=== PATIENT | female | born 1975 | race Caucasian/White ===

== ENCOUNTER 2018-07-26 12:11 | Emergency (ER) | payer MEDICAID ==
[2018-07-26 12:34] LABS: URINE SOURCE CLEAN C
[2018-07-26 12:54] LABS: URINE BILIRUBIN NEGATIVE (NEGATIVE); URINE BLOOD NEGATIVE (NEGATIVE); URINE GLUCOSE (UA) NEGATIVE (NEGATIVE); URINE KETONE NEGATIVE (NEGATIVE); URINE LEUKOCYTE ESTERASE NEGATIVE (NEGATIVE); URINE NITRATE NEGATIVE (NEGATIVE); URINE PH 7.5 (4.6 - 8.0); URINE PROTEIN NEGATIVE (NEGATIVE); URINE UROBILINOGEN 0.2 E.U./dL (0.2 - 1.0)
[2018-07-26 13:11] LABS: URINE CLARITY CLEAR (CLEAR); URINE COLOR STRAW; URINE MICROSCOPIC INDICATED? NO
[2018-07-26] MEDS ORDERED: Morphine Sulfate 2 mg/mL 1mL Syr IV STA (13:23)
[2018-07-26] MEDS ORDERED: Lactated Ringer 1,000 ML IV ONE (13:27)
[2018-07-26 13:31] LABS: AMPHETAMINE URINE NEGATIVE (NEGATIVE); BARBITURATES URINE NEGATIVE (NEGATIVE); BENZODIAZEPINES QUAL URINE NEGATIVE (NEGATIVE); CANNABINOID THC NEGATIVE (NEGATIVE); COCAINE METABOLITE QUAL URINE NEGATIVE (NEGATIVE); METHADONE URINE NEGATIVE (NEGATIVE); METHAMPHETAMINES QUAL URINE NEGATIVE (NEGATIVE); OPIATES (MORPHINE) QUAL. URINE NEGATIVE (NEGATIVE); PHENCYCLIDINE (PCP) URINE NEGATIVE (NEGATIVE); TRICYCLICS (TCA) QUAL. URINE NEGATIVE (NEGATIVE)
[2018-07-26 13:41] LABS: % BASOPHILS 0.7 % (0.0-2.0); % EOSINOPHILS 1.3 % (0.0-5.0); % LYMPHOCYTES 34.5 % (20.0-50.0); % MONOCYTES 5.5 % (2.0-10.0); EOSINOPHILE ABSOLUTE 0.1 Th/cmm (0.1-0.4); HEMATOCRIT 37.5 % (41.0-60); HEMOGLOBIN 11.8 gm/dL (12-16); LYMPHOCYTE ABSOLUTE 2.1 Th/cmm (1.5-3.0); MEAN CELL VOLUME 77.8 fl (81-100); MEAN CORPUSCULAR HEMOGLOBIN 24.6 pg (27.0-31.0); MEAN CORPUSCULAR HGB CONC 31.6 pg (28.0-36.0); MEAN PLATELET VOLUME 8.6 fl; MONOCYTE ABSOLUTE 0.3 Th/cmm (0.3-1.0); NEUTROPHILE ABSOLUTE 3.7 Th/cmm (1.8-8.0); PLATELET COUNT 283 Th/cmm (150-400); RED BLOOD COUNT 4.81 Mil/cmm (3.80-5.10); WHITE BLOOD COUNT 6.2 Th/cmm (4.8-10.8)
[2018-07-26] MEDS ORDERED: Morphine Sulfate 2 mg/mL 1mL Syr ONE (13:44)
[2018-07-26 13:54] LABS: INR 0.88 (0.5-1.4); PROTHROMBIN TIME (TEST) 9.3 SECONDS (9.5-11.5)
--- NOTE | 2018-07-26 18:48 | ED Physician Chart ---
ED Chief Complaint/HPI - Patient Information Date Seen:: 07/26/18 Time Seen:: 12:39 Chief Complaint:: pelvic & low back pain History of Present Illness:: pelvic & low back pain in a patient with a known h/o fibroids (diagnosed in 2017) on ultrasound No N, V, D, C, FEVERS. Allergies:: Allergies Allergy/AdvReac Type Severity Reaction Status Date / Time No Known Allergies Allergy Verified 07/26/18 12:35 Vitals:: Vital Signs - 8 hr 07/26/18 07/26/18 07/26/18 12:39 13:24 13:27 Temp 98.4 F HR 90 82 93 RR 17 BP 146/98 145/94 134/93 O2 Sat % 100 Historian:: Patient, Family Member Review:: Nurse's Note Reviewed ED Review of Systems - Review of Systems General/Constitutional: No fever, No chills, No weight loss, No weakness, No diaphoresis, No edema, No loss of appetite Skin: No skin lesions, No rash, No bruising Head: No headache, No light-headedness Eyes: No loss of vision, No pain, No diplopia ENT: No earache, No nasal drainage, No sore throat, No tinnitus Neck: No neck pain, No swelling, No thyromegaly, No stiffness, No mass noted Cardio Vascular: No chest pain, No palpitations, No PND, No orthopnea, No edema Pulmonary: No SOB, No cough, No sputum, No wheezing GI: No nausea, No vomiting, No diarrhea, No pain, No melena, No hematochezia, No constipation, No hematemesis G/U: No dysuria, No frequency, No hematuria Access Developer: Abnormal vaginal bleeding, Other (pelvic pain) Musculoskeletal: No bone or joint pain, Back pain, No muscle pain Endocrine: No polyuria, No polydipsia Psychiatric: No prior psych history, No depression, No anxiety, No suicidal ideation Hematopoietic: No bruising, No lymphadenopathy Allergic/Immuno: No urticaria, No angioedema Neurological: No syncope, No focal symptoms, No weakness, No paresthesia, No headache, No seizure, No dizziness, No confusion, No vertigo ED Past Medical History - Past Medical History Obtainable: Yes Past Medical History: Other (fibroids) Surgical History: other (tubal ligation) Family Medical History - Family Member Mother History Unknown: Yes ED Physical Exam - Physical Examination General/Constitutional: Awake, Well-developed, well-nourished, GCS 15, Non- toxic appearing, Ambulatory Other Gen/Cons comments:: in pain Head: Atraumatic Eyes: Lids, conjuctiva normal, PERRL, EOMI Skin: Nl inspection, No rash, No skin lesions, No ecchymosis, Well hydrated, No lymphadenopathy ENMT: External ears, nose nl Neck: Nontender, No nuchal rigidity, No stridor Respiratory: Nl effort/Exclusion, Clear to Auscultation, No Wheeze/Rhonchi/Rales Cardio Vascular: RRR, No murmur, gallop, rubs, NL S1 S2 GI: No organomegaly, No hernia, Normal BS's, Nondistended, No McBurney tenderness Other GI comments:: left more than right lower quadrant pain. : No CVA tenderness Extremities: No tenderness or effusion, Full ROM, normal strength in all extremities, No edema, Normal digits & nails Neuro/Psych: Alert/oriented, Normal sensory exam, Normal motor strength, Judgement/insight normal, Normal gait, No focal deficits Other Neuro/Psych comments:: in pain. Misc: Normal back, No paraspinal tenderness ED Labs/Radiology/EKG Results - Lab Results Results: Laboratory Tests 07/26/18 07/26/18 07/26/18 12:20 12:20 12:20 WBC RBC Hgb Hct MCV MCH MCHC Differential RDW Plt Count MPV Neutrophils % Lymphocytes % Monocytes % Eosinophils % Basophils % PT INR PTT (Actin FS) Serum , Qual Urine Source CLEAN C Urine Color STRAW Urine Clarity CLEAR Urine pH 7.5 Ur Specific [place] 1.010 Urine Protein NEGATIVE Urine Glucose (UA) NEGATIVE Urine Ketones NEGATIVE Urine Blood NEGATIVE Urine Nitrate NEGATIVE Urine Bilirubin NEGATIVE Urine Urobilinogen 0.2 Ur Leukocyte Esterase NEGATIVE Urine Test NEGATIVE Urine Opiates Screen NEGATIVE Urine Methadone Screen NEGATIVE Ur Barbiturates Screen NEGATIVE Ur Tricyclics Screen NEGATIVE Ur Phencyclidine Scrn NEGATIVE Amphetamines Screen NEGATIVE U Methamphetamines Scrn NEGATIVE U Benzodiazepines Scrn NEGATIVE U Cocaine Metab Screen NEGATIVE U Cannabinoids Screen NEGATIVE 07/26/18 07/26/18 07/26/18 13:36 13:36 13:36 WBC 6.2 RBC 4.81 Hgb 11.8 L Hct 37.5 L MCV 77.8 L MCH 24.6 L MCHC Differential 31.6 RDW 13.0 Plt Count 283 MPV 8.6 Neutrophils % 58.0 Lymphocytes % 34.5 Monocytes % 5.5 Eosinophils % 1.3 Basophils % 0.7 PT 9.3 L INR 0.88 PTT (Actin FS) 24.1 L Serum , Qual NEGATIVE Urine Source Urine Color Urine Clarity Urine pH Ur Specific [place] Urine Protein Urine Glucose (UA) Urine Ketones Urine Blood Urine Nitrate Urine Bilirubin Urine Urobilinogen Ur Leukocyte Esterase Urine Test Urine Opiates Screen Urine Methadone Screen Ur Barbiturates Screen Ur Tricyclics Screen Ur Phencyclidine Scrn Amphetamines Screen U Methamphetamines Scrn U Benzodiazepines Scrn U Cocaine Metab Screen U Cannabinoids Screen ED Assessment - Assessment General Assessment: ultrasound from today: nabothian cysts seen largest 0.6 cm left ovarian cyst, 1.2 cm right ovarian cysts, multiple, largest 1.3 cm echogenic structure at cervical canal area measuring 0.5 cm. Fluid seen in canal. Multiple heterogeneous structures seen, largest 8 cm consistent with fibroid fobration. previous ultrasound from 03/31/2018 at [facility]: uterus with 12 xz 6 x 6m enlarged containing multiple fibroids largest 6 x 5 cm. The endometrial strip isn't abnormally thickened measuring 2.1 cm. No endometrial masses or polyps. right ovary: 2.6 x 1.5 x 2.2 cm unremarkable with normal blood flow. left ovary: 3.3 x 1.8 x 2.5 unremarkable. Normal blood flow demonstrated. No adnexal masses or free fluid in the cul-de-sac. ED Septic Shock - . Is Septic Shock (SBP<90, OR Lactate>4 mmol\L) present?: No - <6hrs of presentation: Vital Signs: Vital Signs - 8 hr 07/26/18 07/26/18 07/26/18 12:39 13:24 13:27 Temp 98.4 F HR 90 82 93 RR 17 BP 146/98 145/94 134/93 O2 Sat % 100 ED Reassessment (Disposition) - Reassessment Reassessment Condition:: Improved - Diagnosis Diagnosis:: Multiple fibroids of uterus Ovarian cysts. - Aftercare/Follow up Instructions Aftercare/Follow-Up Instructions:: Refer to Discharge Instructions Notes:: follow up with primary care physician Keep your appointment with the voice instructor this week. Medication Prescribed:: Preemption 5/325 1 po q 8 hours prn # 30. - Patient Disposition Discharge/Transfer:: Home Condition at Disposition:: Stable, Improved
--- NOTE | 2018-07-27 08:08 | Diagnostic Imaging Report ---
Pelvic ultrasound HISTORY: Pain Transabdominal and transvaginal sonographic technique utilized. There is a bulbous shaped uterus (10.5 x 6.3 x 5.8 cm). There appears to be an approximate 8.0 x 5.3 x 5.5 cm heterogeneous density which occupies the majority of the uterus. Question fibroid formation. The endometrium margins are not clearly visualized. Small amount of fluid seen through the endocervical canal. Subcentimeter echogenic densities noted within the endocervical canal. Etiology uncertain. Clinical correlation and follow-up is needed. The right ovary measures 2.6 x 1.8 x 2.2 cm. Several cysts are seen. The largest measures 1.3 cm. The left ovary measures 3.2 x 1.9 x 2.8 cm. This is associated with a 1.2 cm cyst. IMPRESSION: 1. Bulbous shaped uterus with a heterogeneous density resulting in obscuration of the endometrium. Findings suggest probable fibroid formation. 2. Abnormal changes through the endocervical canal associated with a small amount of fluid and several echogenic densities. Etiology uncertain. Clinical correlation and follow-up is needed. 3. Bilateral ovarian cystic changes
== END 2018-07-26 18:58 | disposition home or self-care (01) ==
LOC: ER 12:11
DX: D25.9 Leiomyoma of uterus, unspecified (principal); N83.202 Unspecified ovarian cyst, left side; N83.201 Unspecified ovarian cyst, right side; Z98.890 Other specified postprocedural states
CPT/HCPCS: 99284; 96374; 96375; 76856; 36415; 80307; 85025; 85610; 81003; 84703; 81025; J2270; J2405; Z7502